=== PATIENT | female | born 2000 | race Caucasian/White ===

== ENCOUNTER 2020-08-29 06:00 | Inpatient (IN) ==
[2020-08-29] MEDS ORDERED: miSOPROStoL 25 MCG TABLET VG PRN (06:53)
[2020-08-29] MEDS ORDERED: Metoclopramide 10 MG/2 ML VIAL IVP PRN (06:53)
[2020-08-29] MEDS ORDERED: Lidocaine 1% 20 ML MDV INFILT PRN (06:53)
[2020-08-29] MEDS ORDERED: *HR* Nalbuphine 10 MG/ML AMPUL IV PRN (06:53)
[2020-08-29] MEDS ORDERED: Ondansetron 4 MG/2 ML VIAL IVP PRN (06:53)
[2020-08-29] MEDS ORDERED: Naloxone 0.4 MG/ML INJ IVP PRN (06:53)
[2020-08-29] MEDS ORDERED: Famotidine 20 MG/2 ML VIAL IVP PRN (06:53)
[2020-08-29] MEDS ORDERED: *HR* FentaNYL (PF) 100 MCG/2 ML VIAL IVP PRN (06:53)
[2020-08-29] MEDS ORDERED: Azithromycin 500 MG in 0.9 % Sodium Chloride 250 ML IVPB PRN (06:53)
[2020-08-29] MEDS ORDERED: Ringers Solution, Lactated 1,000 ML IVC SCH (07:00)
[2020-08-29] MEDS ORDERED: Ringers Solution, Lactated 1,000 ML ONE (07:00)
[2020-08-29] MEDS ORDERED: Oxytocin 20 units/ LR 1000 mL 20 UNIT/1,000 ML BAG IVC SCH (07:00)
[2020-08-29 07:10] LABS: Basophils # 0.1 K/mcL (0.0-0.2); Eosinophils # 0.2 K/mcL (0.0-0.6); Hematocrit 40.9 % (35.3-44.9); Hemoglobin 13.3 g/dL (11.5-15.4); Immature Granulocytes % 1.8 % (0-4); Lymphocytes # 2.2 K/mcL (0.6-4.6); Lymphocytes % 23.7 %; Mean Corpuscular HGB Conc 32.5 g/dL (31.6-35.5); Mean Corpuscular Hemoglobin 31.3 pg (28.0-33.3); Mean Corpuscular Volume 96.2 fL (83.0-100.0); Mean Platelet Volume 8.8 fL (9.4-12.4); Monocytes # 0.9 K/mcL (0.0-1.3); Monocytes % 9.7 %; Neutrophils # 5.6 K/mcL (1.6-8.9); Platelet Count 195 K/mcL (140-400); Red Blood Count 4.25 M/mcL (3.82-4.97); Red Cell Distribution Width 14.5 % (11.5-14.5); Segmented Neutrophils % 61.8 %; White Blood Count 9.1 K/mcL (4.3-11.1)
[2020-08-29 08:32] LABS: Amphetamine Screen,Urine Negative ng/mL (Cutoff=1000); Barbiturate Screen,Urine Negative ng/mL (Cutoff=200); Benzodiazepines Screen,Urine Negative ng/mL (Cutoff=200); Cannabinoid Screen,Urine Negative ng/mL (Cutoff = 50); Cocaine Screen,Urine Negative ng/mL (Cutoff= 300); Opiate Screen,Urine Negative ng/mL (Cutoff=300); Phencyclidine Screen,Urine Negative ng/mL (Cutoff=25)
[2020-08-29] MEDS ORDERED: *HR* FentaNYL (PF) 100 MCG/2 ML VIAL EP ONE (20:37)
[2020-08-29] MEDS ORDERED: Ropivacaine/PF 0.2% 20 ML VIAL EP ONE (20:37)
[2020-08-29] MEDS ORDERED: EPHEDrine 50 MG/ML VIAL IVP PRN (20:37)
[2020-08-29] MEDS ORDERED: Ropivacaine/PF 0.2% 20 ML VIAL ONE (20:40)
[2020-08-29] MEDS ORDERED: *HR* FentaNYL (PF) 100 MCG/2 ML VIAL ONE (20:40)
[2020-08-29] MEDS ORDERED: Epidural Premix (fent/bupiv) 110 ML EP ONE (20:41)
[2020-08-29] MEDS ORDERED: Epidural Premix (fent/bupiv) 110 ML EP SCH (20:45)
[2020-08-30] MEDS ORDERED: Acetaminophen 325 MG TABLET PO PRN (07:17)
[2020-08-30] MEDS ORDERED: Measles/Mumps/Rubella Vacc 0.5 ML VIAL SQ PRN (07:17)
[2020-08-30] MEDS ORDERED: Rho Immune Globulin 1,500 UNIT SYRINGE IM PRN (07:17)
[2020-08-30] MEDS ORDERED: Sennosides 8.6 MG TABLET PO PRN (07:17)
[2020-08-30] MEDS ORDERED: Oxytocin 20 units/ LR 1000 mL 20 UNIT/1,000 ML BAG IVC ONE (07:17)
[2020-08-30] MEDS ORDERED: Oxytocin 20 units/ LR 1000 mL 20 UNIT/1,000 ML BAG IVC SCH (07:17)
[2020-08-30] MEDS ORDERED: NON-FORMULARY MEDICATION 1 EACH EACH (Pnv No.95/Ferrous Fum/Folic Ac [Prenatal Caplet] 1 E PO SCH (09:00)
[2020-08-30] MEDS ORDERED: Benzocaine/Menthol 56 GM AEROSOL SPRAY TP ONE (09:50)
[2020-08-30] MEDS: Prenatal Vit/FA 1 EACH TABLET PO SCH (10:46)
[2020-08-30] MEDS: Ibuprofen 600 MG TABLET PO PRN ×2 (10:46→22:12)
[2020-08-31] MEDS: Prenatal Vit/FA 1 EACH TABLET PO SCH (08:08)
[2020-08-31] MEDS: Ibuprofen 600 MG TABLET PO PRN ×2 (08:08→14:05)
[2020-08-31 08:30] VITALS: BP 96/59
== END 2020-08-31 14:23 | disposition home or self-care (01) | DRG 806 ==
LOC: 1NENULAB 06:14 → 1NENUOBS 08-30 09:42
PROVIDERS: ADMIT Student in an Organized Health Care Education/Training Program; ATTEND Student in an Organized Health Care Education/Training Program

== ENCOUNTER → 2021-10-03 16:02 | Observation (INO) ==
[2021-10-03 10:03] LABS: Bacteria,Urine Few per hpf (None-Few); Bilirubin,Urine Negative (Negative); Blood,Urine Negative (Negative); Clarity,Urine Turbid (Clear); Color,Urine Yellow (Yellow); Glucose,Urine (UA) Normal (Normal); Ketones,Urine Trace mg/dL (Negative); Leukocyte Esterase,Urine Large (Negative); Mucus,Urine Few per lpf (None-Few); Nitrite,Urine Negative (Negative); Protein,Urine 30 mg/dL (Neg-Trace); Renal Epithelial Cells,Urine Few per hpf (None-Few); Squamous Epithelial Cell,Urine Moderate per hpf (None-Few); Urobilinogen,Urine Normal (Normal); WBC,Urine 30-50 per hpf (0-3)
[2021-10-03 11:24] LABS: Hematocrit 38.8 % (35.3-44.9); Hemoglobin 12.2 g/dL (11.5-15.4); Mean Corpuscular HGB Conc 31.4 g/dL (31.6-35.5); Mean Corpuscular Hemoglobin 28.4 pg (28.0-33.3); Mean Corpuscular Volume 90.2 fL (83.0-100.0); Mean Platelet Volume 8.9 fL (9.4-12.4); Platelet Count 225 K/mcL (140-400); Red Cell Distribution Width 14.8 % (11.5-14.5)
[~2021-10-03 16:02] MED LIST: CeFAZolin 2,000 MG/120 ML BAG IVPB ONE; Famotidine 20 MG TABLET PO ONE; Ondansetron 4 MG/2 ML VIAL IVP PRN; Ondansetron 4 MG/2 ML VIAL ONE; Ondansetron ODT 4 MG TAB.RAPDIS SL ONE; Ringers Solution, Lactated 1,000 ML IVC ONE; Ringers Solution, Lactated 1,000 ML ONE
== END | disposition home or self-care (01) ==
LOC: 1NENULAB
PROVIDERS: ADMIT Student in an Organized Health Care Education/Training Program; ATTEND Student in an Organized Health Care Education/Training Program

== ENCOUNTER 2021-10-11 23:32 | Inpatient (IN) ==
[~2021-10-11 23:32] MED LIST changes: +*HR* Nalbuphine 10 MG/ML AMPUL IV PRN; -CeFAZolin 2,000 MG/120 ML BAG IVPB ONE; -Famotidine 20 MG TABLET PO ONE; +Famotidine 20 MG/2 ML VIAL IVP PRN; +Metoclopramide 10 MG/2 ML VIAL IVP PRN; +Naloxone 0.4 MG/ML INJ IVP PRN; -Ondansetron 4 MG/2 ML VIAL ONE; -Ondansetron ODT 4 MG TAB.RAPDIS SL ONE; -Ringers Solution, Lactated 1,000 ML IVC ONE; -Ringers Solution, Lactated 1,000 ML ONE
[2021-10-11] MEDS ORDERED: Ringers Solution, Lactated 1,000 ML IVC SCH (23:45)
[2021-10-11 23:54] LABS: Basophils % 0.3 %; Eosinophils # 0.1 K/mcL (0.0-0.6); Eosinophils % 0.7 %; Hematocrit 37.5 % (35.3-44.9); Hemoglobin 12.2 g/dL (11.5-15.4); Immature Granulocytes % 0.6 % (0-4); Lymphocytes # 2.3 K/mcL (0.6-4.6); Lymphocytes % 18.3 %; Mean Corpuscular HGB Conc 32.5 g/dL (31.6-35.5); Mean Corpuscular Hemoglobin 28.4 pg (28.0-33.3); Mean Corpuscular Volume 87.4 fL (83.0-100.0); Monocytes % 7.9 %; Neutrophils # 8.9 K/mcL (1.6-8.9); Platelet Count 202 K/mcL (140-400); Red Blood Count 4.29 M/mcL (3.82-4.97); Red Cell Distribution Width 15.1 % (11.5-14.5); Segmented Neutrophils % 72.2 %; White Blood Count 12.3 K/mcL (4.3-11.1)
[2021-10-12 00:03] LABS: Amphetamine Screen,Urine Negative ng/mL (Cutoff=1000); Barbiturate Screen,Urine Negative ng/mL (Cutoff=200); Benzodiazepines Screen,Urine Negative ng/mL (Cutoff=200); Cannabinoid Screen,Urine Negative ng/mL (Cutoff = 50); Cocaine Screen,Urine Negative ng/mL (Cutoff= 300); Opiate Screen,Urine Negative ng/mL (Cutoff=300); Phencyclidine Screen,Urine Negative ng/mL (Cutoff=25)
[2021-10-12] MEDS ORDERED: Epidural Premix (fent/bupiv) 110 ML EP ONE (00:10)
[2021-10-12] MEDS ORDERED: Oxytocin 30 UNIT/503 ML BAG IVC ONE (00:59)
[2021-10-12] MEDS ORDERED: Oxytocin 30 UNIT/503 ML BAG IVC SCH (01:00)
[2021-10-12] MEDS ORDERED: *HR* Oxytocin 10 UNIT/ML VIAL ONE (03:46)
[2021-10-12] MEDS ORDERED: Ibuprofen 600 MG TABLET PO ONE (03:55)
[2021-10-12] MEDS ORDERED: Ondansetron ODT 4 MG TAB.RAPDIS SL PRN (06:20)
[2021-10-12] MEDS ORDERED: *HR* OxyCODONE Immed Rel 5 MG TABLET PO PRN (06:20)
[2021-10-12] MEDS ORDERED: Measles/Mumps/Rubella Vacc 0.5 ML VIAL SQ PRN (06:20)
[2021-10-12] MEDS ORDERED: Benzocaine/Menthol 56 GM AEROSOL SPRAY TP PRN (06:20)
[2021-10-12] MEDS ORDERED: *HR* Oxytocin 10 UNIT/ML VIAL IM ONE (06:20)
[2021-10-12] MEDS ORDERED: Lanolin 7 G OINT...G. TP PRN (06:20)
[2021-10-12] MEDS: Ibuprofen 600 MG TABLET PO SCH ×3 (08:30→20:56)
[2021-10-12] MEDS ORDERED: Prenatal Vit/FA 1 EACH TABLET PO SCH (09:00)
[2021-10-12] MEDS: Acetaminophen 325 MG TABLET PO SCH ×2 (14:22→20:56)
[2021-10-13 07:42] VITALS: BP 104/63; PULSE 59; TEMP 97.3; O2SAT 97
== END 2021-10-13 12:35 | disposition home or self-care (01) | DRG 806 ==
LOC: 1NENULAB → 1NENUOBS 10-12 06:07
PROVIDERS: ADMIT Advanced Practice Midwife; ATTEND Advanced Practice Midwife